=== PATIENT | male | born 1960 | race Two or more races ===

== ENCOUNTER 2025-08-03 14:16 | Emergency (ER) | payer MEDICARE, SELFPAY ==
[2025-08-03 14:17] VITALS: BMI 35.6
[2025-08-03 14:28] VITALS: BP 174/80; PULSE 94; RESP 18; TEMP 37; O2SAT 97
--- NOTE | 2025-08-03 14:33 | EKG_ITS ---
[facility] Test Date: 2025-08-03 Pat Name: YONY BENTON Department: Room: - Gender: Male Acquisition Professional: : 1960 Requested By: Yayo Luna Order Number: [id number] Reading MD: Yayo Luna Measurements Intervals [place] Rate: 87 P: 58 NM: 162 QRS: 3 QRSD: 128 T: 18 QT: 365 QTc: 440 Interpretive Statements SINUS RHYTHM RIGHT BUNDLE BRANCH BLOCK [120+ ms QRS DURATION, UPRIGHT V1, 40+ ms S IN I/aVL/V4/V5/V6] No previous ECG available for comparison /store/S0/[id number].pdf
--- NOTE | 2025-08-03 14:33 | PD.EDRME ---
Rapid Medical Screening Exam E Arrival date/time: 08/03/25 14:16 65-year-old male with a history of hypertension, presents to the emergency room with a chief complaint of uncontrolled hiccups x 3 days I have greeted and performed a focused initial assessment of this patient. A comprehensive ED assessment and evaluation of the patient, analysis of all test results, and completion of the medical decision making process will be conducted by additional ED providers. Chief Complaint: General Adult/Misc Complain Vital signs: Vital Signs Temperature 98.6 F 08/03/25 14:28 Pulse Rate 94 08/03/25 14:28 Respiratory Rate 18 08/03/25 14:28 Blood Pressure 174/80 H 08/03/25 14:28 Pulse Oximetry (%) 97 08/03/25 14:28 Oxygen Delivery Method Room Air 08/03/25 14:28 Vital signs reviewed by provider: Yes Exam: Strong and regular rhythm S1 and S2 noted Clear bilateral lung sounds Clinical Impression: Hiccups/
[2025-08-03 14:56] LABS: Collection Type, Urine Clean Catch
[2025-08-03 14:57] LABS: Basophils # (Auto) 0.1 Thou/mm3 (0.0-0.2); Basophils % (Auto) 1 % (0-2.5); Eosinophils # (Auto) 0.1 Thou/mm3 (0.0-0.5); Eosinophils % (Auto) 2 % (0-10); Hematocrit 41.2 % (41.0-53.0); Hemoglobin 14.6 g/dL (13.5-16.0); Immature Granulocytes Auto 0.07 Thou/mm3 (0.00-0.00); Lymphocytes # (Auto) 2.4 Thou/mm3 (1.0-4.8); Lymphocytes % (Auto) 25 % (10-50); Mean Corpuscular HGB Conc 35.4 g/dl (31.0-37.0); Mean Corpuscular Hemoglobin 28.2 pg (25.0-35.0); Mean Corpuscular Volume 80 fL (80-100); Monocytes # (Auto) 0.7 Thou/mm3 (0.0-0.8); Monocytes % (Auto) 7 % (0-12); Neutrophils # (Auto) 6.1 Thou/mm3 (1.8-7.7); Neutrophils % (Auto) 65 % (37-80); Nucleated Red Blood Cell # 0.00 Thou/mm3 (0.00-0.00); Nucleated Red Blood Cell % 0 /100 WBC (0); Platelet Count 257 Thou/mm3 (140-440); RDW Standard Deviation 36.4 fL (35.1-43.9); Red Blood Count 5.18 Miln/mm3 (4.50-5.90); White Blood Count 9.5 Thou/mm3 (3.8-10.6)
[2025-08-03 15:08] LABS: INR 1.0 (0.9-1.3); Partial Thromboplastin Time 27.4 Seconds (22.0-36.0); Prothrombin Time 11.1 Seconds (9.0-12.2)
[2025-08-03 15:08] LABS: Amphetamine/Methamp Scrn,U Negative (Negative); Barbiturate Screen,Urine Negative (Negative); Benzodiazepines Screen,Urine Negative (Negative); Benzoylecgonine Screen, Ur Negative (Negative); Fentanyl Screen,Urine Negative (Negative); Opiate Screen,Urine Negative (Negative); THC Screen,Urine Negative (Negative)
[2025-08-03 15:10] LABS: B-Type Natriuretic Peptide 21 pg/mL (0-100)
[2025-08-03 15:12] LABS: Alanine Aminotransferase 62 U/L (10-49); Albumin, Serum 4.7 gm/dL (3.4-4.8); Albumin/Globulin Ratio 1.8 (1.2-2.2); Alkaline Phosphatase 128 U/L (46-116); Anion Gap 8 (7-16); Aspartate Amino Transferase 46 U/L (0-34); BUN/Creatinine Ratio 8 Ratio (12-20); Bilirubin,Total 1.8 mg/dL (0.3-1.2); Blood Urea Nitrogen 7 mg/dL (9-23); Calcium 9.9 mg/dL (8.3-10.6); Calcium (Corrected) 9.9 mg/dL (8.5-10.1); Carbon Dioxide 29.5 mMol/L (20.0-31.0); Chloride 97 mMol/L (98-107); Creatinine (Component) 0.9 mg/dL (0.6-1.3); Estimated Creatinine Clearance 83.7 mL/min (>60); Globulin 2.6 gm/dL (2.3-3.5); Glucose 361 mg/dL (74-106); Magnesium 1.8 mg/dL (1.6-2.6); Osmolality,Calculated 281 (275-295); Potassium 4.2 mMol/L (3.4-5.1); Sodium 134 mMol/L (136-145); Total Protein 7.3 gm/dL (5.7-8.2); Troponin I < 0.002 ng/mL (0.0-0.045); eGFR > 60 See Note
[2025-08-03 15:13] LABS: Bilirubin,Urine Negative (Negative); Blood,Urine Negative (Negative); Budding Yeast,Urine Present; Clarity,Urine Clear (Clear/Hazy); Color,Urine Lt-Yellow (Lt Yel-Yel); Culture Indicated,Urine Not Indicated; Glucose, Urine 4+ (Negative); Ketones,Urine Negative (Negative); Leukocyte Esterase,Urine Negative (Negative); Nitrite,Urine Negative (Negative); PH,Urine 6.5 (5.0-7.0); Protein,Urine Negative (Neg - Trace); RBC,Urine 3 /hpf (0-3); Specific Gravity,Urine 1.041 (1.001-1.035); Squamous Epithelial Cell,Urine 1 /hpf (0-5); Urobilinogen,Urine Negative mg/dL (0.0-1.0); WBC,Urine < 1 /hpf (0-5)
[2025-08-03] MEDS: METOCLOPRAMIDE INJ 5 MG/ML VIAL 2 ML 10 MG IM (15:46)
[2025-08-03] MEDS: GABAPENTIN 100 MG CAPSULE 200 MG PO (17:01)
--- NOTE | 2025-08-03 17:44 | EDNOTE_ITS ---
<Statement entered by Vaishali Knight MD - 08/04/25 16:26> As co-signing physician, I was present and available for consult prn. I concur with the plan and care as documented by the midlevel provider. ED General RME/HPI General Chief complaint: General Adult/Misc Complain Stated complaint: HICCUPS FOR 3 DAYS, FEELS LIKE THROAT CLOSING Time Seen by Provider: 08/03/25 14:55 Arrival date/time: 08/03/25 14:16 Hiccups for 3 days no other complaints had a prior history 8 decades ago that resolved spontaneously. No other complaints including chest pain shortness of breath or difficulty breathing. RME / HPI RME / HPI narrative: 08/03/25 14:16 65-year-old male with a history of hypertension, presents to the emergency room with a chief complaint of uncontrolled hiccups x 3 days I have greeted and performed a focused initial assessment of this patient. A comprehensive ED assessment and evaluation of the patient, analysis of all test results, and completion of the medical decision making process will be conducted by additional ED providers. Exam: Strong and regular rhythm S1 and S2 noted Clear bilateral lung sounds Impression: Hiccups/ Related Data Home Medications ?Medication ?Instructions ?Recorded ?Confirmed Hydrocodone/Acetaminophen * (NORCO 1 tab PO QID PRN #0 tabs 06/08/17 7.5/325 *) Sulfamethoxazole/Trimethoprim DS * 1 tab PO BID #0 tab s 06/08/17 (BACTRIM DS *) lisinopril 10 mg tablet 10 mg PO QDAY #0 tabs lorazepam 2 mg tablet 2 mg PO QDAY #0 tabs 7 Previous Rx's ?Medication ?Instructions ?Recorded gabapentin 100 mg capsule 100 mg PO BID #20 caps 08/03 Allergies Allergy/AdvReac Type Severity Reaction Status Date / Time diphenhydramine Allergy Severe Rash Verified 08/03/25 14:18 Review of Systems Review of Systems Narrative Review of Systems: GEN: No fever, no chills, no weight loss EYES: No discharge, no visual changes, no pain HEENT: No ear pain, no congestion, no sore throat PULM: No shortness of breath, no cough, no congestion CV: No chest pain, no dyspnea on exertion, no palpitations GI: No nausea, no vomiting, no diarrhea, no pain, no constipation : No frequency, no urgency, no dysuria MUSC/SKEL: No joint pain, no back pain SKIN: No rash PSYCH: No hallucinations, no depression HEME/LYMPH: No easy bleeding or bruising tendencies NEURO: No weakness, no headache Past Medical History Social History SMOKING STATUS: Never smoker ED Exam Narrative Physical exam: [General: Not in any acute distress Head normocephalic HEENT: Within acceptable limits Neck is supple nontender Chest equal chest rise nontender to palpation Respiratory: Clear to auscultation no wheezes crackles or rubs CV: Rate rhythm is regular no murmurs rubs or clicks Abdomen is soft nontender no masses positive bowel sounds all 4 quadrants, persistent irregular hiccups. Back: No CVA tenderness no spinous process tenderness from cervical spine thoracic and lumbar spine Skin: Intact no petechiae rash induration ulceration or crepitus Extremities: Moving all extremity against resistance cap refill less than 2 seconds neurosensory intact Neuro: Awake alert oriented x3 Glascow coma 15 no focal deficits] Course Course Course Narrative: Patient got temporary relief from metoclopramide but the hiccups returned. Now try the patient on gabapentin Patient has had no relief with gabapentin. At this time we will discharge the patient on gabapentin and have him follow-up with his PCP on the . The patient is advised if they become worse he is to return the emergency room for further evaluation. Quality Measures none Orders Category Date Time Status EKG (ED ONLY) *Do not use* NOW Care 08/03/25 14:33 Completed EKG (ED Only) Stat Exams 08/03/25 14:33 Ordered B-Type Natriuretic Peptide Stat Lab 08/03/25 14:40 Completed CBC Stat Lab 08/03/25 14:40 Completed Comprehensive Metabolic Panel Stat Lab 08/03/25 14:40 Completed Drug Screen,Urine Stat Lab 08/03/25 14:50 Completed Magnesium Stat Lab 08/03/25 14:40 Completed Partial Thromboplastin Time Stat Lab 08/03/25 14:40 Completed Prothrombin Time with INR Stat Lab 08/03/25 14:40 Completed Troponin I Stat Lab 08/03/25 14:40 Completed Urinalysis, C/S if Indicated Stat Lab 08/03/25 14:50 Completed Gabapentin Med 08/03/25 16:46 Discontinued 200 mg PO X1 ONE Metoclopramide Inj [Reglan Inj] Med 08/03/25 14:57 Discontinued 10 mg IM X1 ONE Vital Signs Vital signs: Vital Signs Temperature 98.6 F 08/03/25 14:28 Pulse Rate 94 08/03/25 14:28 Respiratory Rate 18 08/03/25 14:28 Blood Pressure 174/80 H 08/03/25 14:28 Pulse Oximetry (%) 97 08/03/25 14:28 Oxygen Delivery Method Room Air 08/03/25 14:28 Discharge Plan Plan Patient Disposition: HOME (Self Care) Patient condition on transfer: Stable Prescriptions/Referrals Prescriptions/Med Rec: New gabapentin 100 mg capsule 100 mg PO BID Qty: 20 0RF No Action lorazepam 2 MG tablet 2 mg PO QDAY Qty: 0 lisinopril 10 MG tablet 10 mg PO QDAY Qty: 0 Hydrocodone/Acetaminophen * (NORCO 7.5/325 *) 1 TAB tablet 1 tab PO QID PRNQty: 0 Sulfamethoxazole/Trimethoprim DS * (BACTRIM DS *) 1 TAB tablet 1 tab PO BID Qty: 0 Referrals: Jabier Garcia MD [Primary Care Provider, Family Practice] - In 1 week Problem List Clinical Impression: Hiccough Patient/Caregiver Discharge Instructions Other Activity Instructions:: Take the medications as prescribed and follow-up with your Dr Garcia if there is worsening symptoms return the emergency room for reevaluation. Education Materials: ED Hiccups Print Language: Irish Stand Alone Forms: Kaitlynn Award Info., Work/School Release, Patient Portal Info Letter PA/SPECIAL EDUCATION CASE MANAGER Supervising Physician PA/SPECIAL EDUCATION CASE MANAGER Supervising Physician: Rene Pacheco ENP [facility] Clinical Information Provided by: patient Medical Records reviewed [facility] Meds/Rx considered, not ordered None Labs/Rad/Tests considered, not ordered None Chronic Illness/Social Conditions which may negatively complicate care or outcome(s)-explain: None or not applicable EKG Interpretation EKG #1: EKG Interpretation: EKG performed at 1434 shows a ventricular rate of 87 DE interval 162 QRS of 128 QTc of 4 9 is sinus rhythm right bundle branch block. Labs Labs: interpreted by [facility] Lab(s) Interpretation(s): CBC shows no acute leukocytosis anemia thrombocytopenia INR PT and PTT within excepted limits CMP shows a sodium 134 potassium of 4.2 chloride 97 glucose of 361. T. bili 1.8 AST of 46 ALT of 62 alk phos of 128 Troponin BMP within acceptable limits Urine is hemoconcentrated 4+ glucose no infections other than yeast. UDS is negative. Medication Administration(s) Medication Administration History Discontinued Medications Gabapentin (Gabapentin 100 Mg Capsule) 200 mg PO X1 ONE Stop: 08/03/25 16:47 Last Admin: 08/03/25 17:01 Dose: 200 mg Documented By: BRIANNA Metoclopramide HCl (Metoclopramide Inj 5 Mg/Ml Vial 2 Ml) 10 mg IM X1 ONE; Protocol Stop: 08/03/25 14:58 Last Admin: 08/03/25 15:46 Dose: 10 mg Documented By: BRIANNA
== END 2025-08-03 17:57 | disposition home or self-care (01) ==
PROVIDERS: Nurse Practitioner Family; Emergency Provider Emergency Medicine; PCP Family Medicine
DX: I45.10 Unspecified right bundle-branch block (principal); I10 Essential (primary) hypertension
CPT/HCPCS: 36415; 80053; 80307; 81001; 83735; 83880; 84484; 85025; 85610; 85730; 93005; 96372; 99283; J2765; A9270